=== PATIENT | male | born 1970 | race Caucasian/White ===

== ENCOUNTER 2017-10-04 00:25 | Emergency (ER) | payer OTHER ==
[~2017-10-04] VITALS: Ht 175.3 cm; Wt 77.5 kg
[~2017-10-04 00:25] MED LIST: MOTR200T PO
[2017-10-04 00:35] VITALS: BP 132/81; PULSE 99; RESP 16; TEMP 97.5; O2SAT 94
[2017-10-04] MEDS ORDERED: IBUP1TAB7 PO (00:43)
[2017-10-04 02:29] VITALS: BP 140/80; PULSE 84; RESP 20; O2SAT 97
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
[2017-10-04] MEDS ORDERED: BACT800T5 PO (03:38)
[2017-10-04] MEDS ORDERED: CEPH-460 PO (03:38)
[2017-10-04] MEDS ORDERED: DICL75TA PO (03:38)
[2017-10-04] MEDS ORDERED: BACL10TA PO (03:41)
[2017-10-04] MEDS ORDERED: CEPHALEXIN MONOHYDRATE 500 MG CAP PO ONE (03:45)
[2017-10-04] MEDS ORDERED: SULFAMETHOXAZOLE-TRIMETHOPRIM DS 800-160 MG TAB PO ONE (03:45)
== END 2017-10-04 03:57 | disposition home or self-care (01) ==
LOC: NEPD 00:25
DX: L03.114 Cellulitis of left upper limb (principal); S16.1XXA Strain of muscle, fascia and tendon at neck level, initial encounter; S86.912A Strain of unspecified muscle(s) and tendon(s) at lower leg level, left leg, initial encounter; V13.4XXA Pedal cycle driver injured in collision with car, pick-up truck or van in traffic accident, initial encounter; Y93.55 Activity, bike riding
CPT/HCPCS: 72125; 73090; 73564; 99284